=== PATIENT | female | born 1965 | race African-American/Black ===

== ENCOUNTER 2017-06-20 19:06 | Emergency (ER) | payer SELFPAY ==
[~2017-06-20] VITALS: Ht 170.2 cm; Wt 85.9 kg
[~2017-06-20 19:06] MED LIST: HYDR10SO PO; MORP1INJ45 PO; ZOFR4TAB3 SL
[2017-06-20 19:09] VITALS: BP 165/84; PULSE 99; RESP 16; TEMP 98.8; O2SAT 99
--- NOTE | 2017-06-20 19:30 | PD ---
HPI Chief Complaint: facial pain Time Seen by Provider: 19:27 Travel History International Travel<30 days: No Contact w/Intl Traveler<30days: No History of Present Illness HPI Patient comes in complaining of left-sided facial pain that began around noon today. Patient denies anything making this better or worse. States pain has been constant. Denies any radiation of the pain. Patient denies doing anything for this prior to coming emergency department. Denies any weakness anywhere, chest pain, shortness breath, fevers, nausea, vomiting, loss change in bowel or bladder, or . Patient states this does not feel like her typical migraine states she was going take Goody's powder but was uncertain if she should or not. She denies any change in vision or dizziness. [facility] Past Medical History Asthma: Yes Diabetes: No Diminished Hearing: No Headaches: Yes (MIGRAINES) Immunizations Current: Yes Migraines: Yes Tubal Ligation: Yes Past Surgical History Hysterectomy: Yes Other Surgery: Yes (MANDIBULAR GLAND REMOVED) Social History Alcohol Use: No Tobacco Use: No Substance Use: No Allergies-Medications (Allergen,Severity, Reaction): Coded Allergies: No Known Allergies (Verified , 06/20/17) Reported Meds & Prescriptions Reported Meds & Active Scripts Active Reported Bc Fast Pain Relief Arthritis Powder (Aspirin-Caffeine Powder) 1,000-65 Mg Powderpack Review of Systems Except as stated in HPI: all other systems reviewed are Neg Physical Exam Narrative GENERAL: Well-developed, overly nourished, in no acute distress, and non-ill appearing. SKIN: Focused skin assessment warm and dry. HEAD: Atraumatic. Normocephalic. EYES: Pupils equal and round. EOMI. No scleral icterus. No injection or drainage. No foreign body noted. ENT: No nasal bleeding or discharge. Mucous membranes pink and moist. No tenderness facial sinus palpation. No visible or palpable dental abscess. No pain to the dentition to palpation. NECK: Trachea midline. No cervical lymphadenopathy. Supple. No nuclear rigidity. RESPIRATORY: No accessory muscle use. No respiratory distress. MUSCULOSKELETAL: No obvious deformities. No clubbing. No cyanosis. No edema. Full range of motion. NEUROLOGICAL: Awake and alert. No obvious cranial nerve deficits. Motor grossly within normal limits. Normal speech. PSYCHIATRIC: Appropriate mood and affect; insight and judgment normal. Data Data Last Documented VS Vital Signs Date Time Temp Pulse Resp B/P (MAP) Pulse Ox O2 Delivery O2 Flow Rate FiO2 06/20/17 21:47 06/20/17 19:09 98.8 [address] Brain W/O Iv Contrast(Rout) (06/20/17 ) Ondansetron Odt (Zofran Odt) (06/20/17 20:30) Ketorolac Inj (Toradol Inj) (06/20/17 21:00) Ed Discharge Order (06/20/17 21:40) [facility] Medical Decision Making Medical Screen Exam Complete: Yes Emergency Medical Condition: Yes Differential Diagnosis TIA, CVA, atypical migraine, sinusitis, trigeminal neuralgia, shingles, other Narrative Course Patient reassessed reports symptoms have resolved status post Toradol injection and sublingual Zofran. Due to patients subjective complaint and presentation, a head CT was performed which was normal and without evidence of blood or mass. The patient looks great , feels better and is in no significant objective discomfort currently. The patient is in no distress and the patients neurological exam is normal, neck is supple and without meningismus. The headache is not consistent with meningitis or infection, nor does it appear consistent with intracranial bleed (SAH etc.), carotid dissection, nor mass by history, examination and evaluation. There is very little clinical evidence to suggest missed hemorrhage on CT and/or sentinel bleed thus an invasive procedure such as a lumbar puncture was not performed. Medication and close follow-up were discussed with the patient. The patient was instructed to return as needed or if symptoms changed or worsened, fever developed or inability to tolerate fluids. The patient agreed with plan. Patient in no obvious distress upon re-evaluation. All pertinent Radiology result(s) discussed with patient/family. Patient was asked if they wanted to speak to my attending, which the patient did not wish to do at this time. Any questions/concerns in reference to patient diagnosis/condition discussed and clarified prior to patient's discharge. Reinforced sheer importance of close follow up with patient's primary physician or primary care clinic. Instructed patient to return to ED immediately, if symptoms return/worsen. Patient showed understanding of above instructions. Further instructions and recommendations were detailed in discharge paperwork. Patient ambulated without difficulty out of ED at discharge. Diagnosis Primary Impression: Left-sided face pain Patient Instructions: Atypical Facial Pain (GEN), General Instructions Additional Instructions: Follow-up with your primary care physician and/or neurologist this week for reevaluation. Use [id number] Tylenol and/or ibuprofen as needed for pain. Follow instructions on the packaging. Return to the emergency department if symptoms get worse. Disposition: 01 DISCHARGE HOME Condition: Stable Alli Bentley Jun 20, 2017 19:30
[2017-06-20] MEDS ORDERED: ASPI1POW10 (19:33)
[2017-06-20] MEDS ORDERED: ONDANSETRON ODT 4 MG TAB PO ONE (20:30)
--- NOTE | 2017-06-20 20:44 | RADRPT ---
EXAM DATE/TIME: 06/20/2017 19:52 [facility] COMPARISON: No previous studies available for comparison. INDICATIONS : Cephalgia. RADIATION DOSE: 54.32 CTDIvol (mGy) MEDICAL HISTORY : None SURGICAL HISTORY : None. ENCOUNTER: Initial ACUITY: 1 day PAIN SCALE: 9/10 LOCATION: Left cranial TECHNIQUE: Multiple contiguous axial images were obtained of the head. Using automated exposure control and adj ustment of the mA and/or kV according to patient size, radiation dose was kept as low as reasonably a chievable to obtain optimal diagnostic quality images. DICOM format image data is available electro nically for review and comparison. FINDINGS: There is no evidence for intracranial hemorrhage, mass effect, mass lesions, edema, or extra-axial fl uid collections. The visualized bony structures appear intact. The ventricles are normal size for t he patient's age. There are no signs of acute infarction for technique. CONCLUSION: Unremarkable study. Aleksander Del Toro MD on June 20, 2017 at 20:42 Board Certified Radiologist. This report was verified electronically.
[2017-06-20] MEDS ORDERED: KETOROLAC TROMETHAMINE 60 MG/2 ML (IM) VIAL IM ONE (21:00)
== END 2017-06-20 21:57 | disposition home or self-care (01) ==
LOC: PHEFT 19:06
DX: R51 Headache (principal); J45.909 Unspecified asthma, uncomplicated
CPT/HCPCS: 70450; 96372; 99285; J1885